=== PATIENT | female | born 1970 | race Caucasian/White ===

== ENCOUNTER 2020-03-03 12:52 | Emergency (ER) | payer BC ==
[2020-03-03] MEDS ORDERED: DICYCLOMINE HCL INJ 20 MG/2 ML AMP IM ONE (13:22)
[2020-03-03] MEDS ORDERED: ALUM & MAG HYDROX-SIMETHICONE 30 ML, LIDOCAINE VISCOUS 2% 15 ML PO ONE ×2 (13:23)
--- NOTE | 2020-03-03 13:23 | ED.PDOC ---
History of Present Illness - General Chief Complaint: Abdominal Pain Stated Complaint: gallbladder pain Time Seen by Provider: 03/03/20 13:06 - History of Present Illness Initial Comments: 49-year-old female presents with family to ED complaining of several days of progressing right upper quadrant abdominal pain with radiation posteriorly into her back. She has associated nausea without vomiting. She states she was seen in another ED yesterday and a CT scan lab work and urine performed and was told everything looked normal. Patient is scheduled to see Dr. Walton with surgery on Friday and believes she has either an ultrasound or HIDA scan scheduled. Denies history of similar symptoms. Denies alleviating/aggravating factors. Denies associated chest pain, shortness of breath, fever/chills, vomiting, diarrhea, dysuria, frequency, urgency. Denies any other signs, symptoms, complaints. Review of Systems - Review of Systems Constitutional: Denies: chills, fever EENTM: Denies: nose congestion, throat pain Respiratory: Denies: cough, short of breath Cardiology: Denies: chest pain Gastrointestinal/Abdominal: States: abdominal pain, nausea. Denies: constipation, diarrhea, vomiting Genitourinary: States: other - no urgency. Denies: dysuria, frequency Musculoskeletal: States: back pain. Denies: muscle pain Skin: Denies: change in color, rash Neurological: Denies: headache, paresthesia Hematologic/Lymphatic: Denies: easy bruising Past Medical History (General) - Patient Medical History Hx Stroke: No Hx Congestive Heart Failure: No Surgical History: Hysterectomy - Vaccination History Hx Influenza Vaccination: Yes - Social History Hx Tobacco Use: No Family Medical History - Family History Mother Family History: Unknown Living Status: Unknown Physical Exam - Physical Exam General Appearance: Alert, Other - mild distress, non-toxic Eyes, Ears, Nose, Throat Exam: PERRL/EOMI, other - no scleral icterus, bilateral conjunctiva wnl Neck: full range of motion, supple Respiratory: lungs clear, normal breath sounds, no respiratory distress, no accessory muscle use Cardiovascular/Chest: regular rate, rhythm, no JVD, no murmur Gastrointestinal/Abdominal: normal bowel sounds, soft, no organomegaly, no pulsatile mass, other - + RUQ TTP, no rebound, no guarding, - Garcia, - McBurney, no peritoneal signs, no CVA TTP bilaterally Back Exam: no CVA tenderness Neurologic: alert, normal mood/affect, oriented x 3 Skin Exam: normal color, warm/dry, other - no rash Progress - Progress Progress: Raymond Vee DO Emergency Medicine Physician [id number] Appropriate PPE of surgical mask, gown, gloves, and eye protection (if encounter >5 minutes) utilized with every patient encounter; in accordance with hospital policy. Presents for biliary colic. Low clinical concern for acute cholecystitis, pancreatitis, pyelonephritis, or urolithiasis. I will perform imaging, labs, EKG, provide appropriate pharmacotherapy, and continue to monitor/reassess. Dispo will depend on imaging, lab, and EKG results and overall course in ED; however, discharge home is expected with f/u, education, and possible rx. Multiple rechecks of patient with family at bedside during of encounter. Vital signs stable. Patient with continued mild distress but continues to deny opiate pain medications. She does agree to Toradol. 15:58 Recheck patient with family at bedside. Discussed normal findings of her blood work, EKG, imaging. Discussed that I recommend CT despite recently having 1 done yesterday due to need for assessing change. Were also unable to obtain prior records of CT. Patient agrees with this plan. Patient continues to deny opiate pain medications at this time. After CT has been performed patient states she would like to go ahead and have a low-dose opiate pain medication to try to relieve her pain. I will order IV fentanyl 25 mcg 1 time. 20:10 Rechecked pt with family member at bedside. Dr. France also at bedside talking with patient. NAD, VSS, and pain is now improved and controlled. I have discussed radiology, labs, ekg, my clinical impression, and diagnosis. I have also discussed plan for discharge home with f/u, education, and use of prescribed medications. ED return precautions provided. Pt plans for f/u with Dr. France on Friday for HIDA scan and possibility of elective cholecystectomy. Pt and family member voice understanding, agree with plan, and all questions answered. - Results/Orders Results/Orders: EKG @1425: read @1428. NSR @ 60, nl axis, intervals wnl, no ST elevations/depressions. No STEMI. No prior EKG's for comparison in [facility]. 03/03/20 14:15 EKG STAT Laboratory Results - last 24 hr 03/03/20 03/03/20 13:32 13:32 WBC 5.1 RBC 4.46 Hgb 13.7 Hct 40.3 MCV 90.4 MCH 30.8 MCHC 34.1 RDW 12.9 Plt Count 217 MPV 8.4 Absolute Neuts (auto) 2.90 Absolute Lymphs (auto) 1.60 Absolute Monos (auto) 0.60 Absolute Eos (auto) 0.10 Absolute Basos (auto) 0.00 Neutrophils % 56.2 Lymphocytes % 31.2 Monocytes % 11.0 H Eosinophils % 1.0 Basophils % 0.6 Sodium 139 Potassium 3.9 Chloride 104 Carbon Dioxide 26 Anion Gap 12.9 BUN 15 Creatinine 0.62 BUN/Creatinine Ratio 24.2 H Random Glucose 107 H Serum Osmolality 278.8 Calcium 9.4 Total Bilirubin 0.8 Direct Bilirubin 0.1 AST 22 ALT 21 Alkaline Phosphatase 31 L Serum Total Protein 7.4 Albumin 4.6 Globulin 2.8 Albumin/Globulin Ratio 1.6 Lipase 34 PROCEDURE: Chest w/Contrast CLINICAL HISTORY: 49 years Female soft tissue density identified on abd/pel ct COMPARISON: Abdomen pelvis CT 03/03/2020. TECHNIQUE: Contiguous axial images obtained through the chest with IV contrast. Reformatted images obtained. This exam was performed according to our department optimization program which includes automated exposure control, adjustment of the mA and/or kv according to patient size and/or use of iterative reconstruction technique. FINDINGS: Findings in the abdomen are discussed under an earlier dictation heading. Tiny cyst in the left lobe of the liver. The aorta is normal in caliber without dissection or rupture. No pericardial or pleural effusion. No significant hilar or mediastinal lymph nodes. There is a small pleural-based density measuring 4 x 7 mm along the posterior lateral left chest wall on image 88. Suspect that this is related to scarring but recommend follow-up in 6-12 months and then again at 18-24 months. The area of abnormality seen on the abdominal CT corresponds with the ovoid low-attenuation area measuring 1.8 x 2 x 3 cm. Hounsfield units 18 HU. Low-attenuation lymph node thought unlikely. Suspect small duplication or pericardial cyst. IMPRESSION: Low-attenuation lesion along the posterior aspect of the left atrium suggesting duplication or pericardial cyst. Hounsfield units are indeterminant. Recommend further evaluation with MRI for confirmation Pleural-based nodular density in the lateral left lower lobe for which follow-up is recommended in 6- [address] with additional CT at 18-24 months Electronically signed by: Ana Shrestha MD 03/03/2020 5:48 PM SOLUTION MANAGER EXAM DESCRIPTION: Abdomen/Pelvis w/Contrast CLINICAL HISTORY: 49 years Female, RUQ abd pain TECHNIQUE: This exam was performed according to our departmental dose-optimization program, which includes automated exposure control, adjustment of the mA and/or kV according to patient size and/or use of iterative reconstruction technique. COMPARISON: None at time of initial interpretation. FINDINGS: Incompletely imaged soft tissue density adjacent the esophagus measuring 1.4 cm axial image one. Lung bases are clear. The liver is unremarkable. No suspicious hepatic lesion. No biliary dilatation. The gallbladder is unremarkable. The portal vein is patent. The spleen, pancreas and adrenal glands are unremarkable. Symmetric renal parenchymal enhancement. No hydronephrosis. No urolithiasis. Unremarkable bladder. Hysterectomy. No suspicious adnexal lesion. No evidence of bowel obstruction or focal inflammatory change. No findings to suggest appendicitis. Normal appendix. No adenopathy. No focal fluid collection. No free air. Normal caliber abdominal aorta. No acute or suspicious osseous abnormality. Scattered degenerative changes present. IMPRESSION: 1. No evidence of acute process in the abdomen or pelvis. 2. Incompletely imaged soft tissue density adjacent the esophagus measuring 1.[address] chest for further evaluation. Electronically signed by: Cecil Pereira MD 03/03/2020 4:30 PM SOLUTION MANAGER EXAM DESCRIPTION: Gall Bladder: ULTRASOUND. CLINICAL HISTORY: RUQ abd pain COMPARISON: None. TECHNIQUE: Transabdominal scanning: Luevano-scale and Doppler modes. FINDINGS: Gallbladder: normal size, shape, echogenicity; no intraluminal stones or sludge. No fluid around the gallbladder. No wall thickening. 1.9 mm. Non-tender with transducer pressure. Common bile duct: caliber 4.4 mm within normal limits. Liver: normal echogenicity; contour liver capsule smooth where seen. No fluid around the liver. Intrahepatic biliary ducts normal caliber. Doppler hepatopedal flow portal vein.. Normal caliber portal vein:. 7 mm. Long axis right lobe 12.4 cm. Pancreas: normal size Normal echogenicity. Duct not seen. Aorta: 1.5 cm normal caliber. Right kidney: long axis is 9.9 cm.; volume 90.4 mL. Normal echogenicity and thickness of the cortex. No echogenic stones and no hydronephrosis.. IMPRESSION: Normal ultrasound of the gallbladder, common bile duct, liver, pancreas, and right kidney. No ascites. No organomegaly. Nontender with transducer pressure. Normal caliber of the proximal abdominal aorta. Electronically signed by: Law Dobbs MD 03/03/2020 3:46 PM [facility] Vital Signs - 24 hr 03/03/20 03/03/20 03/03/20 13:07 14:41 16:35 Temperature 98.8 F Pulse Rate [ 80 63 94 H Left Brachial] Respiratory 20 20 20 Rate Blood Pressure 130/92 132/81 146/94 [Left Arm] O2 Sat by Pulse 98 97 97 Oximetry 03/03/20 18:28 Temperature 99.4 F Pulse Rate [ 56 L Left Brachial] Respiratory 20 Rate Blood Pressure 141/90 [Left Arm] O2 Sat by Pulse 99 Oximetry Departure - Departure Clinical Impression: Biliary colic, Liver cyst, Pericardial cyst Time of Disposition: 18:01 Disposition: Discharge to Home or Self Care Condition: Fair Departure Forms: ED Discharge - Pt. Copy, Patient Portal Self Enrollment Instructions: DI for Abdominal Pain-Adult, Gallstones (DC), Cysts in the Liver Diet: bland diet Referrals: AMENA COLMENARES [facility] [Primary Care Provider] - 1-2 Weeks Jamie France MD [Active Staff] - 03/06/20 Prescriptions: Acetaminophen W/ Codeine [Tylenol W/ CODEINE #3] 1 ea PO Q6HR PRN 4 Days #15 ea PRN Reason: See Comments Below Promethazine Tab [Phenergan Tablet] 12.5 mg PO TID PRN #12 tab PRN Reason: Nausea/Vomiting Sucralfate 1 gm PO BID 5 Days #10 tab Ketorolac Tromethamine [Toradol Tabs] 10 mg PO TID PRN 5 Days #15 tab PRN Reason: Abdominal Distress Home Medications: Ambulatory Orders Acetaminophen W/ Codeine [Tylenol W/ CODEINE #3] 1 ea PO Q6HR PRN 4 Days #15 ea 03/03/20 Diclofenac Sodium [Diclofenac Sodium Dr] 50 mg PO PRN 03/03/20 Dicyclomine HCl [Bentyl] 20 mg PO Q6H 03/03/20 Ketorolac Tromethamine [Toradol Tabs] 10 mg PO TID PRN 5 Days #15 tab 03/03/20 Promethazine Tab [Phenergan Tablet] 12.5 mg PO TID PRN #12 tab 03/03/20 Sucralfate 1 gm PO BID 5 Days #10 tab 03/03/20 Additional Instructions: Discontinue Diclofenac. No other NSAIDs at home including no Aleve/Naproxen, Ibuprofen/Advil/Motrin/BC Powder.
[2020-03-03] MEDS ORDERED: KETOROLAC TROMETHAMINE INJ 30 MG/ML VIAL IV ONE (15:42)
[2020-03-03] MEDS ORDERED: KETOROLAC TROMETHAMINE INJ 30 MG/ML VIAL IM ONE (15:47)
--- NOTE | 2020-03-03 15:48 | US ---
EXAM DESCRIPTION: Gall Bladder: ULTRASOUND. CLINICAL HISTORY: RUQ abd pain COMPARISON: None. TECHNIQUE: Transabdominal scanning: Luevano-scale and Doppler modes. FINDINGS: Gallbladder: normal size, shape, echogenicity; no intraluminal stones or sludge. No fluid around the gallbladder. No wall thickening. 1.9 mm. Non-tender with transducer pressure. Common bile duct: caliber 4.4 mm within normal limits. Liver: normal echogenicity; contour liver capsule smooth where seen. No fluid around the liver. Intrahepatic biliary ducts normal caliber. Doppler hepatopedal flow portal vein.. Normal caliber portal vein:. 7 mm. Long axis right lobe 12.4 cm. Pancreas: normal size Normal echogenicity. Duct not seen. Aorta: 1.5 cm normal caliber. Right kidney: long axis is 9.9 cm.; volume 90.4 mL. Normal echogenicity and thickness of the cortex. No echogenic stones and no hydronephrosis.. IMPRESSION: Normal ultrasound of the gallbladder, common bile duct, liver, pancreas, and right kidney. No ascites. No organomegaly. Nontender with transducer pressure. Normal caliber of the proximal abdominal aorta. Electronically signed by: Law Dobbs MD 03/03/2020 3:46 PM [facility]
--- NOTE | 2020-03-03 16:31 | CT ---
EXAM DESCRIPTION: Abdomen/Pelvis w/Contrast CLINICAL HISTORY: 49 years Female, RUQ abd pain TECHNIQUE: This exam was performed according to our departmental dose-optimization program, which includes automated exposure control, adjustment of the mA and/or kV according to patient size and/or use of iterative reconstruction technique. COMPARISON: None at time of initial interpretation. FINDINGS: Incompletely imaged soft tissue density adjacent the esophagus measuring 1.4 cm axial image one. Lung bases are clear. The liver is unremarkable. No suspicious hepatic lesion. No biliary dilatation. The gallbladder is unremarkable. The portal vein is patent. The spleen, pancreas and adrenal glands are unremarkable. Symmetric renal parenchymal enhancement. No hydronephrosis. No urolithiasis. Unremarkable bladder. Hysterectomy. No suspicious adnexal lesion. No evidence of bowel obstruction or focal inflammatory change. No findings to suggest appendicitis. Normal appendix. No adenopathy. No focal fluid collection. No free air. Normal caliber abdominal aorta. No acute or suspicious osseous abnormality. Scattered degenerative changes present. IMPRESSION: 1. No evidence of acute process in the abdomen or pelvis. 2. Incompletely imaged soft tissue density adjacent the esophagus measuring 1.[address] chest for further evaluation. Electronically signed by: Cecil Pereira MD 03/03/2020 4:30 PM BIG DATA SOFTWARE ENGINEER
[2020-03-03] MEDS ORDERED: SODIUM CHLORIDE 0.9% 1000ML 1,000 ML IVS ONE (16:39)
[2020-03-03] MEDS ORDERED: fentaNYL CITRATE INJ 50 MCG/ML 2 ML AMP IV ONE (17:04)
--- NOTE | 2020-03-03 17:50 | CT ---
PROCEDURE: Chest w/Contrast CLINICAL HISTORY: 49 years Female soft tissue density identified on abd/pel ct COMPARISON: Abdomen pelvis CT 03/03/2020. TECHNIQUE: Contiguous axial images obtained through the chest with IV contrast. Reformatted images obtained. This exam was performed according to our department optimization program which includes automated exposure control, adjustment of the mA and/or kv according to patient size and/or use of iterative reconstruction technique. FINDINGS: Findings in the abdomen are discussed under an earlier dictation heading. Tiny cyst in the left lobe of the liver. The aorta is normal in caliber without dissection or rupture. No pericardial or pleural effusion. No significant hilar or mediastinal lymph nodes. There is a small pleural-based density measuring 4 x 7 mm along the posterior lateral left chest wall on image 88. Suspect that this is related to scarring but recommend follow-up in 6-12 months and then again at 18-24 months. The area of abnormality seen on the abdominal CT corresponds with the ovoid low-attenuation area measuring 1.8 x 2 x 3 cm. Hounsfield units 18 HU. Low-attenuation lymph node thought unlikely. Suspect small duplication or pericardial cyst. IMPRESSION: Low-attenuation lesion along the posterior aspect of the left atrium suggesting duplication or pericardial cyst. Hounsfield units are indeterminant. Recommend further evaluation with MRI for confirmation Pleural-based nodular density in the lateral left lower lobe for which follow-up is recommended in 6-[address] with additional CT at 18-24 months Electronically signed by: Ana Shrestha MD 03/03/2020 5:48 PM COMMUNICATIONS INSTRUCTOR
[2020-03-03 18:29] VITALS: BP 141/90; TEMP 99.4; O2SAT 99
== END 2020-03-03 18:29 | disposition home or self-care (01) ==
LOC: ER 12:52
DX: K80.20 Calculus of gallbladder without cholecystitis without obstruction (principal); K76.89 Other specified diseases of liver; I31.8 Other specified diseases of pericardium
CPT/HCPCS: 36415; 71260; 74177; 76705; 80053; 82248; 83690; 85025; 93005; J0500; J1885; J3010; J7030

== ENCOUNTER → 2020-03-08 | Outpatient (CLI) | payer BC ==
--- NOTE | 2020-03-09 15:10 | NM ---
EXAM DESCRIPTION: Hepatobiliar w/CCK: Nuclear Medicine. CLINICAL HISTORY: disease of gallbladder, Weight 130 lbs COMPARISON: Ultrasound gallbladder March 03. CT scan of abdomen and pelvis on that same visit. TECHNIQUE: Patient was given 8.2 mCi of technetium 99 M mebrofenin (Choletec) radiopharmaceutical IV. Anterior gamma camera images were obtained of the right upper quadrant at 5 minute intervals for 1 hour . The patient was then given 1.2 mcg CCK IV infusion over 30-minute interval. Gallbladder ejection fraction was evaluated by measuring change in radioactivity in the gallbladder, over 30 min interval. FINDINGS: After administration of radiopharmaceutical, immediate visualization of the entire liver with no focal abnormal areas of increased activity or photopenia. Almost immediately visualization of intrahepatic ducts. Extrahepatic ducts were visualized, then the gallbladder not visualized until 20 minutes after radiopharmaceutical administration. After CCK infusion began IV, symptoms were not reproduced. At 10 minutes after infusion, gallbladder activity decreased 10%. After 20 minutes, activity and decreased 16%, and after 30 minutes, total activity and only decreased 14%. IMPRESSION: 1. No intrahepatic or extrahepatic biliary obstruction. 2. Markedly abnormal gallbladder ejection fraction of 14-16%. This can indicate gallbladder dyskinesia or chronic cholecystitis. Electronically signed by: Law Dobbs MD 03/09/2020 3:08 PM [facility]
== END ==
LOC: NM 08:44
PROVIDERS: ATTEND Nurse Practitioner Family
DX: K82.9 Disease of gallbladder, unspecified (principal)
CPT/HCPCS: 78227; A9537

== ENCOUNTER 2020-03-17 06:00 | Day surgery (SDC) | payer BC ==
[2020-03-17] MEDS ORDERED: LACTATED RINGERS 1,000 ML ONE (06:46)
[2020-03-17] MEDS ORDERED: PROPOFOL 200 MG/20 ML VIAL IV ONE (07:00)
[2020-03-17] MEDS ORDERED: MAGNESIUM SULFATE INJ 1 GM/2 ML VIAL ONE (07:00)
[2020-03-17] MEDS ORDERED: GLYCOPYRROLATE 0.2 MG/ML VIAL ONE (07:00)
[2020-03-17] MEDS ORDERED: LIDOCAINE 1% 10 ML VIAL INJ ONE (07:00)
[2020-03-17] MEDS ORDERED: KETOROLAC TROMETHAMINE INJ 30 MG/ML VIAL ONE (07:00)
[2020-03-17] MEDS ORDERED: DEXAMETHASONE INJ 10 MG/ML VIAL ONE (07:00)
[2020-03-17] MEDS ORDERED: BUPIVACAINE 0.25% W/EPI 50 ML VIAL INJ ONE ×3 (08:26→10:42)
[2020-03-17] MEDS ORDERED: fentaNYL CITRATE INJ 50 MCG/ML 2 ML AMP ONE (10:29)
[2020-03-17] MEDS ORDERED: MIDAZOLAM INJ 2 MG/2 ML VIAL ONE (10:29)
[2020-03-17] MEDS ORDERED: SUGAMMADEX SODIUM 200 MG/2 ML VIAL IV ONE (10:29)
[2020-03-17] MEDS ORDERED: DEXMEDETOMIDINE HCL 200 MCG/2 ML INJ IV ONE (10:29)
[2020-03-17] MEDS ORDERED: ROCURONIUM BROMIDE 10 MG/ML VIAL ONE (10:29)
[2020-03-17] MEDS ORDERED: FAMOTIDINE INJ 10 MG/ML VIAL IV ONE (10:30)
[2020-03-17] MEDS ORDERED: LACTATED RINGERS 400 ML IVS ONE (11:27)
[2020-03-17 13:08] VITALS: BP 144/75; TEMP 99.1; O2SAT 98
--- NOTE | 2020-03-17 13:09 | OP ---
DATE OF PROCEDURE: 03/17/20 PREOPERATIVE DIAGNOSIS: 1. Abdominal pain. 2. Biliary dyskinesia. POSTOPERATIVE DIAGNOSIS: 1. Abdominal pain. 2. Biliary dyskinesia. PROCEDURE: 1. Laparoscopic cholecystectomy. SURGEON: Jamie France MD. ANESTHESIA: General, Josue Brody CRNA. FINDINGS: Normal anatomy at the gallbladder. Somewhat distended with some mild chronic scarring. COMPLICATIONS: None. ESTIMATED BLOOD LOSS: Minimal. SPECIMEN: Gallbladder. PLAN: Discharge. INDICATION: As stated. PROCEDURE: The patient was brought to the Operating Suite in supine position. General anesthesia was induced. The patient was prepped and draped in sterile fashion. Marcaine 0.5% with epinephrine was used at all incision sites. While maintaining upward traction, a jovan was made near the base of the umbilicus. Veress needle was introduced. There was free flow of fluid into the peritoneal cavity which was insufflated to an appropriate level with CO2 gas. The 5 mm trocar was placed followed by the camera. There was no evidence of bleeding or bowel injury and no significant intraabdominal scarring. The patient was positioned and subxiphoid and lateral ports were placed under direct visualization without difficulty. The gallbladder fundus was identified. It was grasped and retracted superiorly and laterally. The infundibulum was grasped. The infundibular area scars were taken down without difficulty. Upon retraction, the cystic duct was isolated and triply ligated and the artery as well was triply ligated. The gallbladder was then removed from the fossa with cautery and removed from the subxiphoid incision without difficulty. The fossa was examined. It remained hemostatic. The clips were intact. There was no bleeding or bile leakage. At that point, the abdomen was desufflated and the trocars were removed. There was no evidence of bleeding from the trocar sites. The wounds were then closed with Monocryl. Dressings were applied. The patient was awakened and taken to Recovery to be discharged. #[id number] [facility]
== END 2020-03-17 12:50 | disposition home or self-care (01) ==
LOC: AMB 06:00
PROVIDERS: ATTEND Surgery
DX: K82.8 Other specified diseases of gallbladder (principal); E78.00 Pure hypercholesterolemia, unspecified; Z90.710 Acquired absence of both cervix and uterus; Z88.8 Allergy status to other drugs, medicaments and biological substances; Z79.899 Other long term (current) drug therapy
CPT/HCPCS: 00790; 36415; 47562; 80048; 85025; J1100; J1885; J2250; J3010; J3475; J3490; J7120